=== PATIENT | female | born 1945 | race Caucasian/White ===

== ENCOUNTER → 2021-04-25 | Outpatient (CLI) | payer MEDICARE, BC ==
[~2021-04-25] MED LIST: LISI1TAB20 PO
== END ==
LOC: LAB 14:20
PROVIDERS: ATTEND Ophthalmology
DX: Z01.812 Encounter for preprocedural laboratory examination (principal); Z20.822 Contact with and (suspected) exposure to COVID-19
CPT/HCPCS: U0003; U0005

== ENCOUNTER 2021-04-27 09:41 | Day surgery (SDC) | payer MEDICARE, BC ==
[~2021-04-27] VITALS: Ht 160 cm; Wt 90.0 kg
[~2021-04-27 09:41] MED LIST changes: +CHONDROIT-SOD-HYALURONATE KIT. ONE; +CHONDROITIN-SOD-HYALURONATE 0.5 ML DISP.SYRIN. ONE; +CIPROFLOXACIN 0.3% OPHTH SOLUTION 5ML BOTTLE. OS ONE; +CYCLOPENTOLATE 1% OPHTH SOLUTION 2ML BOTTLE. OS SCH; +HYDROmorphone 2 MG/ML VIAL IVP PRN; +IV RINGERS,LACTATED 1000ML 1,000 ML IV SCH; +LIDOCAINE 1%/PHENYLEPH 1.5% PF OPHTH 1 ML VIAL. ONE; +LIDOCAINE 2% JELLY 6ML IN APPLICATOR. OS ONE; +MORPHINE SULFATE 2 MG/ML INJ. IVP PRN; +NEO/POLYMYX/DEXAMETH OPHTH OINTMENT 3.5GM TUBE. ONE; +PROCHLORPERAZINE 10 MG/2 ML VIAL. IVP PRN; +PROPARACAINE 0.5% OPHTH SOLUTION 15ML BOTTLE. OS ONE; +fentaNYL PF VIAL 100 MCG/2 ML VIAL IVP PRN
[2021-04-27 10:08] VITALS: BP 178/78
[2021-04-27] MEDS: PHENYLEPHRINE 10% OPHTH SOLUTION 5ML BOTTLE. OS SCH ×3 (11:30→11:40)
[2021-04-27] MEDS: CYCLOPENTOLATE 2% OPHTH SOLUTION 2ML BOTTLE. OS SCH ×3 (11:30→11:40)
[2021-04-27] MEDS ORDERED: MIDAZOLAM HCL/PF 2 MG/2 ML VIAL. ONE (12:14)
[2021-04-27] MEDS ORDERED: CHONDROIT-SOD-HYALURONATE KIT. ONE (12:33)
[2021-04-27 13:03] VITALS: BP 174/76
--- NOTE | 2021-04-27 13:43 | OP ---
DATE OF SURGERY: 04/27/2021 PREOPERATIVE DIAGNOSIS: Cataract of the left eye. PROCEDURE: Phacoemulsification with posterior chamber intraocular lens implantation of the left eye. INDICATION: Painless progressive visual loss and visually significant cataract and difficulty reading and driving. SURGEON: Miguel Harris MD. ANESTHESIA: Topical with monitored anesthesia care. DESCRIPTION OF PROCEDURE: The left eye was prepped with Betadine in the usual sterile fashion and draped. A paracentesis was performed followed by instillation of preservative-free phenylephrine admixed with lidocaine and balanced salt solution. A temporal clear corneal incision was made, followed by instillation of viscoelastic. A capsulorrhexis was performed, followed by hydrodissection. The phacoemulsification handpiece was used to remove the nucleus in a modified stop and chop fashion. The IA handpiece was used to remove the cortex. Provisc was injected into the anterior chamber and an Parth model SN60WF with a power of 21.5 diopters was placed into the capsular bag. Balanced salt solution was used to hydrate the corneal wounds and the viscoelastic evacuated with the IA handpiece. Once no leak was noted, Maxitrol was placed on the eye and the eye shielded, and the patient was sent to the recovery room uneventfully. NATALIA DR: Cielo TID: [id number]
== END 2021-04-27 13:42 | disposition home or self-care (01) ==
LOC: SURG 09:41 → EDUNIT# 12:30 → SURG 13:42
PROVIDERS: ATTEND Ophthalmology
DX: H25.89 Other age-related cataract (principal); I10 Essential (primary) hypertension; Z90.49 Acquired absence of other specified parts of digestive tract; Z98.890 Other specified postprocedural states; Z79.899 Other long term (current) drug therapy; Z98.42 Cataract extraction status, left eye
CPT/HCPCS: 66984; J0171; J0690; J1580; J2250; J3490; V2632

== ENCOUNTER 2021-05-04 10:39 | Day surgery (SDC) | payer MEDICARE, BC ==
[~2021-05-04] VITALS: Ht 160 cm; Wt 90.0 kg
[~2021-05-04 10:39] MED LIST changes: +BALANCED SALT IRRIG OPHTH SOLN 15 ML BOTTLE. ONE; -CHONDROIT-SOD-HYALURONATE KIT. ONE; -CHONDROITIN-SOD-HYALURONATE 0.5 ML DISP.SYRIN. ONE; +CIPROFLOXACIN 0.3% OPHTH SOLUTION 5ML BOTTLE. OD ONE; -CIPROFLOXACIN 0.3% OPHTH SOLUTION 5ML BOTTLE. OS ONE; +CYCLOPENTOLATE 1% OPHTH SOLUTION 2ML BOTTLE. OD SCH; -CYCLOPENTOLATE 1% OPHTH SOLUTION 2ML BOTTLE. OS SCH; -HYDROmorphone 2 MG/ML VIAL IVP PRN; -LIDOCAINE 1%/PHENYLEPH 1.5% PF OPHTH 1 ML VIAL. ONE; +LIDOCAINE 2% JELLY 6ML IN APPLICATOR. OD ONE; +LIDOCAINE 2% JELLY 6ML IN APPLICATOR. ONE; -LIDOCAINE 2% JELLY 6ML IN APPLICATOR. OS ONE; -MORPHINE SULFATE 2 MG/ML INJ. IVP PRN; -PROCHLORPERAZINE 10 MG/2 ML VIAL. IVP PRN; +PROPARACAINE 0.5% OPHTH SOLUTION 15ML BOTTLE. OD ONE; -PROPARACAINE 0.5% OPHTH SOLUTION 15ML BOTTLE. OS ONE; +TRYPAN BLUE 0.06% INTRAOCULAR 0.5 ML SYRINGE. ONE; -fentaNYL PF VIAL 100 MCG/2 ML VIAL IVP PRN
[2021-05-04] MEDS ORDERED: LIDOCAINE 1%/PHENYLEPH 1.5% PF OPHTH 1 ML VIAL. ONE (10:40)
[2021-05-04] MEDS ORDERED: BALANCED SALT IRRIG OPHTH SOLN 15 ML BOTTLE. ONE (10:40)
[2021-05-04] MEDS ORDERED: CHONDROITIN-SOD-HYALURONATE 0.5 ML DISP.SYRIN. ONE (10:40)
[2021-05-04] MEDS ORDERED: CHONDROIT-SOD-HYALURONATE KIT. ONE (10:40)
[2021-05-04 11:03] VITALS: BP 169/79
[2021-05-04] MEDS: CYCLOPENTOLATE 2% OPHTH SOLUTION 2ML BOTTLE. OD SCH ×3 (11:48→12:01)
[2021-05-04] MEDS: PHENYLEPHRINE 10% OPHTH SOLUTION 5ML BOTTLE. OD SCH ×3 (11:48→12:01)
[2021-05-04 13:00] VITALS: BP 138/62
--- NOTE | 2021-05-04 13:14 | OP ---
DATE OF SURGERY: 05/04/2021 PREOPERATIVE DIAGNOSIS: Cataract in the right eye. PROCEDURE: Phacoemulsification with posterior chamber intraocular lens implantation of the right eye. INDICATIONS: Painless progressive visual loss and visually significant cataract and difficulty reading and driving. SURGEON: Miguel Harris MD ANESTHESIA: Topical with monitored anesthesia care. DESCRIPTION OF PROCEDURE: The right eye was prepped with Betadine in the usual sterile fashion and draped. A paracentesis was performed followed by instillation of preservative-free phenylephrine admixed with lidocaine and balanced salt solution. A temporal clear corneal incision was made followed by instillation of Viscoat. A capsulorrhexis was performed, followed by hydrodissection. The phacoemulsification handpiece was used to remove the nucleus in a modified stop and chop fashion. The I/A handpiece was used to remove the cortex. Provisc was injected in the anterior chamber. An Parth model SN60WF with a power of 20.5 diopters was placed into the capsular bag. Balanced salt solution was used to hydrate the corneal wounds and the viscoelastic evacuated with the I/A handpiece. Once no leak was noted, Maxitrol was placed on the eye and the eye shielded and the patient was sent to the recovery room uneventfully. MITCH DR: Cielo TID: [id number]
== END 2021-05-04 13:22 | disposition home or self-care (01) ==
LOC: SURG 10:39 → EDUNIT# 12:00 → SURG 13:22
PROVIDERS: ATTEND Ophthalmology
DX: H25.89 Other age-related cataract (principal); I10 Essential (primary) hypertension; Z79.899 Other long term (current) drug therapy; Z90.49 Acquired absence of other specified parts of digestive tract; Z98.890 Other specified postprocedural states
CPT/HCPCS: 66984; A4930; J0171; J0690; J1580; J3490; V2632